=== PATIENT | female | born 1955 | race Caucasian/White ===

== ENCOUNTER → 2016-06-26 | Outpatient (CLI) | payer OTHER ==
--- NOTE | 2016-06-26 14:37 | DX ---
PA and Lateral Chest - June 26, 2016 Indication: Cough and rales. Comparison: Two-view chest dated November 02, 2015 Findings: Subpleural reticular abnormality throughout the periphery of the right and left lungs, part icularly in the right base, is more conspicuous than on the prior exam. The peribronchial thickening is unchanged. Heart size is normal. No edema, effusion, or consolidation. Impression: 1. Chronic airways disease. 2. Query underlying interstitial lung disease, particularly in the right base.
== END ==
LOC: BMCIMAGING 13:06
PROVIDERS: ATTEND Internal Medicine Pulmonary Disease
DX: J44.9 Chronic obstructive pulmonary disease, unspecified (principal)

== ENCOUNTER → 2016-07-07 | Outpatient (CLI) | payer OTHER ==
--- NOTE | 2016-07-07 14:05 | MA ---
Bilateral Diagnostic Digital Mammograms With iCAD Clinical Indications: Palpable abnormality upper right breast. Technique: Standard digital cephalocaudal and mediolateral oblique projections were obtained. Addit ional exaggerated CC and true lateral views of the right breast. This examination was processed by [facility] computer-aided detection system. Comparison: 2011, 2009, 2006. Breast Density: B - 25-50%. Findings: Computer-aided detection was reviewed. Both breasts demonstrate no new dominant densities, suspicious cluster of microcalcifications, or architectural distortion. No suspicious findings in the right breast upper-outer aspect either. Impression: 1. ACR BI-RADS 0: Needs further imaging. 2. No mammographic evidence of malignancy. Recommendation: Ultrasound of the right breast upper aspect which will be subsequently performed. Ple ase see ultrasound report and recommendations. [facility] will send a result letter to the patient.
--- NOTE | 2016-07-07 14:40 | US ---
Ultrasound RIGHT Breast History: Palpable abnormality in right breast 11-1 o'clock position. Comparison: Multiple prior mammograms most recent from today. Technique: Ultrasound imaging of the upper-outer quadrant of the right breast from the 9 to the 3 o'c lock position was performed by the engineer internship and me. Findings: No ultrasound evidence of dominant solid or cystic lesion in the right breast upper-outer q uadrant. No suspicious findings on mammography or ultrasound in the upper aspect of the right breast. Impression: 1. BI-RADS 1: Negative ultrasound of the right breast. 2. No ultrasound evidence of dominant solid or cystic lesion in the right breast upper quadrants. 3. Recommend continued clinical monitoring and treatment based on clinical suspicion. 4. Recommend annual mammograms with next bilateral mammogram in June 2017. Findings and recommendations have been discussed with the patient who agrees with the plan.
== END ==
LOC: CIMAGING 13:14
PROVIDERS: ATTEND Internal Medicine
DX: Z12.39 Encounter for other screening for malignant neoplasm of breast (principal); N63 Unspecified lump in breast
CPT/HCPCS: 76641-PO; G0204

== ENCOUNTER → 2016-07-10 | Outpatient (CLI) | payer OTHER ==
--- NOTE | 2016-07-10 11:43 | CT ---
High resolution CT of the chest without contrast at 0930 hour History: Rule out underlying interstitial lung disease versus resolving pneumonitis. Technique: Thin slice axial imaging was obtained at 10 mm intervals through the chest in supine posit ion during inspiration and expiration. Prone imaging was also obtained through the lung bases. Spiral imaging was then obtained through the chest with images reconstructed in multiple planes. Dose reduc tion techniques were utilized. Findings: On the high resolution images pleural-parenchymal scarring is seen involving both upper lob es extending to the apex. There is also focal scarring suspected with traction bronchiectasis involvi ng right middle lobe and lingula adjacent to the mediastinum. There are some focal areas of thickenin g also in the subpleural location with thickening of the interlobular septa involving both lower lobe s peripherally bilaterally with early honeycomb pattern suspected. Early honeycomb pattern is also hazel spected right lower lobe posterior medially at the costophrenic angle.. The bronchial chua appear to be normal without thickening. No endobronchial lesion is seen. There is no significant air trapping seen on expiration views. On the routine imaging through the chest, there is no consolidation, effusion, or pneumothorax. There are no significant pulmonary nodules seen. Increased number of small benign-appearing subcentimeter lymph nodes are seen in the AP window especially about the [place] and prevertebral region. There is n o pericardial effusion. The heart and great vessels are normal in contour. The soft tissues about the chest demonstrate no significant abnormality. Limited evaluation of upper abdominal structures to th e level of the upper kidneys demonstrates no significant abnormalities. Impression: 1. Pleural parenchymal scarring suspected both upper lobes extending to the apex. 2. 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 3. Focal scarring most prominent involving right middle lobe and lingula anteromedially with associat ed traction bronchiectasis. Consider follow-up noncontrast CT of the chest in 6 months to confirm stability of areas of pleural t hickening and scarring extending into the parenchyma especially in the upper lobes as well as to foll ow up areas of presumed scarring and fibrosis especially right middle lobe and lingula.
== END ==
LOC: CIMAGING 09:17
PROVIDERS: ATTEND Internal Medicine Pulmonary Disease
DX: Z03.89 Encounter for observation for other suspected diseases and conditions ruled out (principal); R91.8 Other nonspecific abnormal finding of lung field
CPT/HCPCS: 71250-PO